=== PATIENT | male | born 1965 | race Hispanic/Latino ===

== ENCOUNTER 2018-07-26 21:24 | Emergency (ER) | payer BC ==
--- NOTE | 2018-07-26 22:15 | EDPHYS ---
Physician Documentation [facility] Name: Pako Wright Age: 52 yrs Sex: Male : 1965 Arrival Date: 07/26/2018 Time: 21:30 Bed 23 Private MD: Sudha Taylor H ED Physician Vitor Machado HPI: 07/26 22:10 This 52 yrs old Male presents to ER via Ambulatory with complaints of Eye yuliya Problem. 22:10 The patient sustained a scratch, to the right eye. Onset: The symptoms/episode yuliya began/occurred just prior to arrival. Duration: the symptoms are continuous. Aggravated by blinking, closing eye, light, opening eye, Alleviated by covering eye, lying down. Associated signs and symptoms: Pertinent positives: None. Pertinent negatives: None. Severity of symptoms: At their worst the symptoms were mild moderate in the emergency department the symptoms are unchanged. The patient has not experienced similar symptoms in the past. Historical: - Allergies: 21:37 No Known Allergies; jd3 - Home Meds: 21:37 None [Active]; jd3 - PMHx: 21:37 None; jd3 - PSHx: 21:37 left knee; jd3 - Immunization history:: Adult Immunizations up to date. - Social history:: Smoking status: Patient/guardian denies using tobacco. - Ebola Screening: : Patient negative for fever greater than or equal to 101.5 degrees Fahrenheit, and additional compatible Ebola Virus Disease symptoms. - Family history:: not pertinent. ROS: 22:10 Constitutional: Negative for fever, chills, and weight loss, ENT: Negative for injury, yuliya pain, and discharge, Neck: Negative for injury, pain, and swelling, Cardiovascular: Negative for chest pain, palpitations, and edema, Respiratory: Negative for shortness of breath, cough, wheezing, and pleuritic chest pain, Abdomen/GI: Negative for abdominal pain, nausea, vomiting, diarrhea, and constipation, Back: Negative for injury and pain, : Negative for injury, bleeding, discharge, and swelling, MS/Extremity: Negative for injury and deformity, Skin: Negative for injury, rash, and discoloration, Neuro: Negative for headache, weakness, numbness, tingling, and seizure, Psych: Negative for depression, anxiety, suicide ideation, homicidal ideation, and hallucinations, Allergy/Immunology: Negative for hives, rash, and allergies, Endocrine: Negative for neck swelling, polydipsia, polyuria, polyphagia, and marked weight changes, Hematologic/Lymphatic: Negative for swollen nodes, abnormal bleeding, and unusual bruising. 22:10 Eyes: Positive for foreign body sensation, pain, photophobia, tearing. Exam: 22:10 Constitutional: This is a well developed, well nourished patient who is awake, alert, yuliya and in no acute distress. Head/Face: Normocephalic, atraumatic. ENT: Nares patent. No nasal discharge, no septal abnormalities noted. Tympanic membranes are normal and external auditory canals are clear. Oropharynx with no redness, swelling, or masses, exudates, or evidence of obstruction, uvula midline. Mucous membranes moist. Neck: Trachea midline, no thyromegaly or masses palpated, and no cervical lymphadenopathy. Supple, full range of motion without nuchal rigidity, or vertebral point tenderness. No Meningismus. Chest/axilla: Normal chest wall appearance and motion. Nontender with no deformity. No lesions are appreciated. Cardiovascular: Regular rate and rhythm with a normal S1 and S2. No gallops, murmurs, or rubs. Normal PMI, no JVD. No pulse deficits. Respiratory: Lungs have equal breath sounds bilaterally, clear to auscultation and percussion. No rales, rhonchi or wheezes noted. No increased work of breathing, no retractions or nasal flaring. Abdomen/GI: Soft, non-tender, with normal bowel sounds. No distension or tympany. No guarding or rebound. No evidence of tenderness throughout. Back: No spinal tenderness. No costovertebral tenderness. Full range of motion. Skin: Warm, dry with normal turgor. Normal color with no rashes, no lesions, and no evidence of cellulitis. MS/ Extremity: Pulses equal, no cyanosis. Neurovascular intact. Full, normal range of motion. Neuro: Awake and alert, GCS 15, oriented to person, place, time, and situation. Cranial nerves II-XII grossly intact. Motor strength 5/5 in all extremities. Sensory grossly intact. Cerebellar exam normal. Normal gait. Psych: Awake, alert, with orientation to person, place and time. Behavior, mood, and affect are within normal limits. 22:10 Eyes: Periorbital structures: appear normal, no acute changes, Pupils: no acute changes, equal, round, and reactive to light and accomodation, Extraocular movements: intact throughout, Conjunctiva: normal, no acute changes, Corneas: abrasion, a fluorescein strip employed to appreciate the findings, Sclera: no appreciated abnormality, no acute changes, Anterior chamber: normal, no acute changes, Lids and lashes: appear normal, no acute changes, no evidence of trauma, Visual lara: are intact, no acute changes, Nystagmus: is not appreciated. Vital Signs: 21:35 BP 118 / 69; Pulse 57; Resp 16 S; Temp 98.0(TE); Pulse Ox 98% on R/A; Weight 79.38 kg jd3 (R); Height 5 ft. 9 in. (175.26 cm) (R); Pain 7/10; 22:40 BP 126 / 65; Pulse 61; Resp 16 S; Temp 98.1(O); Pulse Ox 99% on R/A; ca1 21:35 Body Mass Index 25.84 (79.38 kg, 175.26 cm) jd3 Visual Acuity: 21:51 Left Eye Visual acuity 20/50, Pupil size 3 mm, Normal, React To Light, Reactive To jd3 Accomodation; Right Eye Visual acuity 20/70, Pupil size 3 mm, Normal, React To Light, Reactive To Accomodation; Both Eyes Visual acuity 20/40; Without Lenses; MDM: 22:01 Patient medically screened. [facility] 22:13 Data reviewed: vital signs, nurses notes. [facility] 07/26 22:09 Order name: Eye Tray; Complete Time: 22:19 [facility] 07/26 22:10 Order name: Misc. Order: patch right eye; Complete Time: 22:43 [facility] 07/26 22:10 Order name: Fluoresene Opth strip; Complete Time: 22:18 [facility] Administered Medications: 22:17 Drug: Tetracaine Drops 0.5 % 1 drops Route: Ophthalmic; Site: right eye; ca1 22:17 Drug: Issue 10 mg-325 mg 1 tabs Route: PO; ca1 22:43 Follow up: Response: No adverse reaction; Pain is decreased ca1 22:30 Drug: Tobramycin Ointment (0.3 %) 0.5 inches Route: Ophthalmic; Site: right eye; ca1 Disposition: 07/26/18 22:14 Discharged to Home. Impression: Injury of conjunctiva and corneal abrasion without foreign body, right eye. - Condition is Stable. - Prescriptions for Tobrex 0.3 % Ophthalmic ointment - apply 1 inch ribbon by OPHTHALMIC route 3 times per day; 3.5 gram. Tylenol- Codeine #3 300-30 mg Oral Tablet - take 2 tablet by ORAL route every 6 hours As needed; 30 tablet. - Medication Reconciliation Form, Thank You Letter, Antibiotic Education, Prescription Opioid Use, Work release form form. - Follow up: Sudha Taylor DO; When: 2 - 3 days; Reason: Recheck today's complaints, Continuance of care, Re-evaluation by your physician. Follow up: Paxton Lala MD; When: 2 - 3 days; Reason: Recheck today's complaints, Re-evaluation by your physician. Follow up: Tika Jacobson MD; When: 1 - 2 days; Reason: Recheck today's complaints, Continuance of care, Re-evaluation by your physician. - Problem is new. - Symptoms have improved. Signatures: Vitor Machado MD MD cha Davies, Jonathon, RN RN jd3 Araseli Lubin RN RN ca1 Corrections: (The following items were deleted from the chart) 22:11 22:11 Misc. Order ordered. [facility] 22:32 22:14 07/26/2018 22:14 Discharged to Home. Impression: Injury of conjunctiva and yuliya corneal abrasion without foreign body, right eye. Condition is Stable. Forms are Medication Reconciliation Form, Thank You Letter, Antibiotic Education, Prescription Opioid Use. Follow up: Sudha Taylor; When: 2 - 3 days; Reason: Recheck today's complaints, Continuance of care, Re-evaluation by your physician. Follow up: Paxton Lala; When: 2 - 3 days; Reason: Recheck today's complaints, Re-evaluation by your physician. Problem is new. Symptoms have improved. [facility] 22:47 22:32 07/26/2018 22:14 Discharged to Home. Impression: Injury of conjunctiva and ca1 corneal abrasion without foreign body, right eye. Condition is Stable. Prescriptions for Tobrex 0.3 % Ophthalmic ointment - apply 1 inch ribbon by OPHTHALMIC route 3 times per day; 3.5 gram, Tylenol-Codeine #3 300-30 mg Oral Tablet - take 2 tablet by ORAL route every 6 hours As needed; 30 tablet. and Forms are Medication Reconciliation Form, Thank You Letter, Antibiotic Education, Prescription Opioid Use. Follow up: Sudha Taylor; When: 2 - 3 days; Reason: Recheck today's complaints, Continuance of care, Re-evaluation by your physician. Follow up: Tika Jacobson; When: 1 - 2 days; Reason: Recheck today's complaints, Continuance of care, Re-evaluation by your physician. Problem is new. Symptoms have improved. yuliya
--- NOTE | 2018-07-26 22:15 | ER ---
Nurse's Notes [facility] Name: Pako Wright Age: 52 yrs Sex: Male : 1965 Arrival Date: 07/26/2018 Time: 21:30 Bed 23 Private MD: Sudha Taylor H Diagnosis: Injury of conjunctiva and corneal abrasion without foreign body, right eye Presentation: 07/26 21:34 Presenting complaint: Patient states: "Something hit me in the right eye about 30 min jd3 ago. when I open it I see blurry and it hurts.". Transition of care: patient was not received from another setting of care. Onset of symptoms was July 26, 2018. Risk Assessment: Do you want to hurt yourself or someone else? Patient reports no desire to harm self or others. Initial Sepsis Screen: Does the patient meet any 2 criteria? No. Patient's initial sepsis screen is negative. Does the patient have a suspected source of infection? No. Patient's initial sepsis screen is negative. Care prior to arrival: None. 21:34 Method Of Arrival: Ambulatory jd3 21:34 Acuity: LOURDES 4 jd3 Historical: - Allergies: 21:37 No Known Allergies; jd3 - Home Meds: 21:37 None [Active]; jd3 - PMHx: 21:37 None; jd3 - PSHx: 21:37 left knee; jd3 - Immunization history:: Adult Immunizations up to date. - Social history:: Smoking status: Patient/guardian denies using tobacco. - Ebola Screening: : Patient negative for fever greater than or equal to 101.5 degrees Fahrenheit, and additional compatible Ebola Virus Disease symptoms. - Family history:: not pertinent. Screenin:45 Abuse screen: Denies threats or abuse. Denies injuries from another. Nutritional ca1 screening: No deficits noted. Tuberculosis screening: No symptoms or risk factors identified. Fall Risk None identified. Assessment: 21:45 General: Appears in no apparent distress. comfortable, Behavior is calm, cooperative, ca1 appropriate for age. Pain: Complains of pain in right eye Pain does not radiate. Pain currently is 8 out of 10 on a pain scale. Pain began 1 hour ago. Neuro: Level of Consciousness is awake, alert, obeys commands, Oriented to person, place, time, situation. EENT: Eyes are tearing on outer aspect of conjuctiva of right eye, iris of right eye, inner aspect of conjuctiva of right eye and right inner canthus. Derm: Skin is intact, is healthy with good turgor, Skin is pink, warm \\T\\ dry. Musculoskeletal: Circulation, motion, and sensation intact. Capillary refill < 3 seconds. 22:43 Reassessment: Eye patch applied on R eye. Pt tolerated well. Instructions on eye care ca1 given. Verbalized understanding of instructions. Vital Signs: 21:35 BP 118 / 69; Pulse 57; Resp 16 S; Temp 98.0(TE); Pulse Ox 98% on R/A; Weight 79.38 kg jd3 (R); Height 5 ft. 9 in. (175.26 cm) (R); Pain 7/10; 22:40 BP 126 / 65; Pulse 61; Resp 16 S; Temp 98.1(O); Pulse Ox 99% on R/A; ca1 21:35 Body Mass Index 25.84 (79.38 kg, 175.26 cm) jd3 Visual Acuity: 21:51 Left Eye Visual acuity 20/50, Pupil size 3 mm, Normal, React To Light, Reactive To jd3 Accomodation; Right Eye Visual acuity 20/70, Pupil size 3 mm, Normal, React To Light, Reactive To Accomodation; Both Eyes Visual acuity 20/40; Without Lenses; ED Course: 21:30 Patient arrived in ED. es 21:30 Sudha Taylor DO is Private Physician. es 21:35 Triage completed. jd3 21:37 Arm band placed on. jd3 21:45 Patient has correct armband on for positive identification. Placed in gown. Bed in low ca1 position. Call light in reach. Side rails up X 1. Pulse ox on. NIBP on. Warm blanket given. 22:01 Vitor Machado MD is Attending Physician. yuliya 22:10 Araseli Lubin, JAVIER is Primary Nurse. ca1 22:13 Sudha Taylor DO is Referral Physician. yuliya 22:13 Paxton Lala MD is Referral Physician. yuliya 22:32 Referral Physician role handed off by Paxton Lala MD yuliya 22:32 Tika Jacobson MD is Referral Physician. yuliya 22:46 No provider procedures requiring assistance completed. Patient did not have IV access ca1 during this emergency room visit. Administered Medications: 22:17 Drug: Tetracaine Drops 0.5 % 1 drops Route: Ophthalmic; Site: right eye; ca1 22:17 Drug: Noel 10 mg-325 mg 1 tabs Route: PO; ca1 22:43 Follow up: Response: No adverse reaction; Pain is decreased ca1 22:30 Drug: Tobramycin Ointment (0.3 %) 0.5 inches Route: Ophthalmic; Site: right eye; ca1 Outcome: 22:14 Discharge ordered by . yuliya 22:46 Discharged to home ambulatory, with family. ca1 22:46 Condition: stable 22:46 Discharge instructions given to patient, Instructed on discharge instructions, follow up and referral plans. medication usage, Demonstrated understanding of instructions, follow-up care, medications, Prescriptions given X 2. 22:47 Patient left the ED. ca1 Signatures: Vitor Machado MD MD cha Salyer, Edna es Davies, Jonathon RN RN jd3 Araseli Lubin RN RN ca1
[2018-07-26] MEDS ORDERED: TETRACAINE HCL 0.5% 4ML OPTH ONE (22:22)
[2018-07-26] MEDS ORDERED: FLUORESCEIN SODIUM 1 MG/WRAP ONE (22:29)
[2018-07-26] MEDS ORDERED: HYDROCODONE/APAP 10/325 TAB ONE (22:30)
[2018-07-26] MEDS ORDERED: TOBRAMYCIN SULF 0.3% OPTH OINT ONE (22:30)
== END 2018-07-26 22:47 | disposition home or self-care (01) ==
LOC: ER 21:24
DX: S05.01XA Injury of conjunctiva and corneal abrasion without foreign body, right eye, initial encounter (principal)
CPT/HCPCS: 99283

== ENCOUNTER 2022-04-07 02:59 | Emergency (ER) | payer BC ==
[2022-04-07] MEDS ORDERED: NA CHLORIDE 0.9% 1,000 ML ONE (03:44)
[2022-04-07] MEDS ORDERED: FAMOTIDINE 20 MG/2 ML VIAL IV ONE (03:44)
[2022-04-07] MEDS ORDERED: ONDANSETRON 4 MG/2 ML VIAL ONE (03:44)
[2022-04-07] MEDS ORDERED: MORPHINE 4 MG/ML SYR ONE (03:44)
[2022-04-07 04:08] LABS: Absolute Lymphocytes (CBC) 1.1 K/uL (0.7-4.9); Hematocrit 35.5 % (39.6-49.0); Lymphocytes % 11.7 % (15.3-44.8); MCV 88.2 fL (80-100); MPV 8.8 fL (7.6-11.3); RBC Red Blood Cell Count 4.03 M/uL (4.33-5.43)
[2022-04-07 04:24] LABS: Albumin 3.8 g/dL (3.4-5.0); Bilirubin Total 0.4 mg/dL (0.2-1.0); Potassium 3.8 mmol/L (3.5-5.1); Protein, Total 7.1 g/dL (6.4-8.2)
--- NOTE | 2022-04-07 05:50 | ER ---
Nurse's Notes [facility] Name: Pako Wright Age: 56 yrs Sex: Male : 1965 Arrival Date: 04/07/2022 Time: 03:05 Bed 19 Private MD: Diagnosis: Abdominal pain, unspecified;Nausea with vomiting, unspecified;Diarrhea, unspecified Presentation: 04/07 03:17 Chief complaint: Patient states: "I woke up at one with pain in my stomach, I started vc1 shaking and I threw up once.". Coronavirus screen: Vaccine status: Patient reports being unvaccinated. Client denies travel out of the [place] in the last 14 days. chills, diarrhea, nausea, Client presents with at least one sign or symptom that may indicate coronavirus-19. Ebola Screen: Patient negative for fever greater than or equal to 101.5 degrees Fahrenheit, and additional compatible Ebola Virus Disease symptoms Patient denies exposure to infectious person. Patient denies travel to an Ebola-affected area in the 21 days before illness onset. No symptoms or risks identified at this time. Initial Sepsis Screen: Does the patient meet any 2 criteria? No. Patient's initial sepsis screen is negative. Does the patient have a suspected source of infection? No. Patient's initial sepsis screen is negative. Risk Assessment: Do you want to hurt yourself or someone else? Patient reports no desire to harm self or others. Onset of symptoms was April 07, 2022 at 01:00. 03:17 Method Of Arrival: Ambulatory vc1 03:17 Acuity: LOURDES 3 vc1 Triage Assessment: 03:21 General: Appears in no apparent distress. uncomfortable, slender, Behavior is calm, vc1 cooperative, appropriate for age. Pain: Complains of pain in right upper quadrant Pain radiates to left upper quadrant Pain currently is 8 out of 10 on a pain scale. at worst was 10 out of 10 on a pain scale. Noted to be grimacing, guarding, Also complains of nausea. EENT: No deficits noted. No signs and/or symptoms were reported regarding the EENT system. Neuro: Level of Consciousness is awake, alert, obeys commands, Oriented to person, place, time, situation, Appropriate for age. Cardiovascular: No deficits noted. Respiratory: Airway is patent Respiratory effort is even, unlabored, Respiratory pattern is regular, symmetrical. GI: Abd is soft Abdomen is tender to palpation in right upper quadrant and left upper quadrant Reports upper abdominal pain, diarrhea, nausea, vomiting. : No deficits noted. No signs and/or symptoms were reported regarding the genitourinary system. Derm: No deficits noted. No signs and/or symptoms reported regarding the dermatologic system. Musculoskeletal: No deficits noted. No signs and/or symptoms reported regarding the musculoskeletal system. Historical: - Allergies: 03:20 No Known Allergies; vc1 - Home Meds: 03:20 Flomax 0.4 mg Oral cap 1 cap once daily [Active]; pantoprazole 20 mg oral TbEC 1 tab vc1 once daily [Active]; - PMHx: 03:20 prostate issues; acid reflex; vc1 - PSHx: 03:20 None; vc1 - Immunization history:: Client reports having NOT received the Covid vaccine. - Social history:: Smoking status: Patient denies any tobacco usage or history of. - Family history:: not pertinent. - Hospitalizations: : No recent hospitalization is reported. Screenin:23 [facility] ED Fall Risk Assessment (Adult) History of falling in the last 3 months, vc1 including since admission No falls in past 3 months (0 pts) Confusion or Disorientation No (0 pts) Intoxicated or Sedated No (0 pts) Impaired Gait No (0 pts) Mobility Assist Device Used No (0 pt) Altered Elimination No (0 pt) Score/Fall Risk Level 0 - 2 = Low Risk Oriented to surroundings, Maintained a safe environment, Educated pt \\T\\ family on fall prevention, incl call for assistance when getting out of bed, Assessed \\T\\ reinforced patient's understanding of fall precautions. Abuse screen: Denies threats or abuse. Nutritional screening: No deficits noted. Tuberculosis screening: No symptoms or risk factors identified. Assessment: 03:09 General: Appears uncomfortable, Behavior is calm, cooperative. Pain: Complains of pain ha1 in abdomen Pain does not radiate. Pain currently is 8 out of 10 on a pain scale. Quality of pain is described as crampy, Pain began suddenly. Neuro: Level of Consciousness is awake, alert, obeys commands, Oriented to person, place, time, situation. Cardiovascular: Heart tones S1 S2 present Patient's skin is warm and dry. Respiratory: Airway is patent Respiratory effort is even, unlabored, Respiratory pattern is regular, symmetrical. GI: Abdomen is flat, non-distended, Bowel sounds present X 4 quads. Reports upper abdominal pain. GI: Abd is soft and non tender X 4 quads. : No signs and/or symptoms were reported regarding the genitourinary system. EENT: No signs and/or symptoms were reported regarding the EENT system. Derm: Skin is moist, Skin is normal. Musculoskeletal: Circulation, motion, and sensation intact. Range of motion: intact in all extremities. 04:17 Reassessment: Patient and/or family updated on plan of care and expected duration. Pain ha1 level reassessed. Patient is alert, oriented x 3, equal unlabored respirations, skin warm/dry/pink. pain 3/10 Patient states feeling better. Patient states symptoms have improved. 05:10 Reassessment: Patient and/or family updated on plan of care and expected duration. Pain ha1 level reassessed. Patient is alert, oriented x 3, equal unlabored respirations, skin warm/dry/pink. Patient states feeling better. Patient states symptoms have improved. 06:06 Reassessment: Patient and/or family updated on plan of care and expected duration. Pain ha1 level reassessed. Patient is alert, oriented x 3, equal unlabored respirations, skin warm/dry/pink. 3/10 Patient states feeling better. Patient states symptoms have improved. Vital Signs: 03:09 BP 128 / 70; Pulse 72; Resp 16 S; Pulse Ox 98% on R/A; ha1 03:17 BP 128 / 72; Pulse 65; Resp 18; Temp 98.5; Pulse Ox 99% ; Weight 83.91 kg; Height 5 ft. vc1 9 in. (175.26 cm); Pain 8/10; 03:48 BP 128 / 70; Pulse 70; Resp 18 S; Pulse Ox 98% on R/A; ha1 04:17 BP 119 / 76; Pulse 60; Resp 18 S; Pulse Ox 97% on R/A; ha1 05:10 BP 113 / 72; Pulse 57; Resp 18 S; Pulse Ox 98% ; ha1 06:06 BP 113 / 72; Pulse 60; Resp 17 S; Pulse Ox 98% on R/A; ha1 03:17 Body Mass Index 27.32 (83.91 kg, 175.26 cm) vc1 ED Course: 03:05 Patient arrived in ED. [email or web address] 03:06 Nakul Hsu MD is Attending Physician. rn 03:18 Triage completed. vc1 03:23 Arm band placed on left wrist. vc1 03:24 Patient has correct armband on for positive identification. Bed in low position. Pulse vc1 ox on. NIBP on. 03:25 Gloria Dawn RN is Primary Nurse. ha1 03:30 No provider procedures requiring assistance completed. Inserted saline lock: 20 gauge ha1 antecubital area, using aseptic technique. 04:00 CBC with Diff Sent. ha1 04:00 CMP Sent. ha1 04:00 Lipase Sent. ha1 04:10 Gloria Dawn RN is Primary Nurse. ha1 05:03 CT Abd/Pelvis - IV Contrast Only In Process Unspecified. EDMS 06:10 IV discontinued, intact, bleeding controlled, No redness/swelling at site. Pressure ha1 dressing applied. Administered Medications: 03:50 Drug: NS 0.9% 1000 ml Route: IV; Rate: 1 bolus; Site: right antecubital; ha1 04:50 Follow up: Response: No adverse reaction; IV Status: Completed infusion; IV Intake: ha1 1000ml 03:51 Drug: Zofran (Ondansetron) 4 mg Route: IVP; Site: right antecubital; ha1 04:17 Follow up: Response: No adverse reaction; Nausea is decreased ha1 03:55 Drug: Pepcid (famotidine) 20 mg Route: IVP; Site: right antecubital; ha1 04:17 Follow up: Response: No adverse reaction ha1 03:58 Drug: morphine 4 mg Route: IVP; Infused Over: 4 mins; Site: right antecubital; ha1 04:17 Follow up: Response: No adverse reaction; Pain is decreased; RASS: Alert and Calm (0) ha1 Medication: 03:24 VIS not applicable for this client. vc1 Intake: 04:50 IV: 1000ml; Total: 1000ml. ha1 Outcome: 05:50 Discharge ordered by . rn 06:09 Discharged to home ambulatory, with family. ha1 06:09 Condition: stable 06:09 Discharge instructions given to patient, family, Instructed on discharge instructions, follow up and referral plans. medication usage, Demonstrated understanding of instructions, follow-up care, medications, Prescriptions given X 3. 06:10 Patient left the ED. ha1 Signatures: Dispatcher [employer] EDMS Nakul Hsu MD MD rn Jeffries, Jennifer [email or web address] Beulah Dang RN RN vc1 Gloria Dawn RN RN ha1 Corrections: (The following items were deleted from the chart) 05:13 04:55 Response: No adverse reaction ha1 ha1 05:14 04:56 Response: No adverse reaction ha1 ha1 05:18 04:20 BP 119 / 76; Pulse 60bpm; Resp 18bpm; Spontaneous; Pulse Ox 97% RA; ha1 ha1
--- NOTE | 2022-04-07 05:50 | EDPHYS ---
Physician Documentation [facility] Name: Pako Wright Age: 56 yrs Sex: Male : 1965 Arrival Date: 04/07/2022 Time: 03:05 Bed 19 Private MD: ED Physician Nakul Hsu HPI: 04/07 03:48 This 56 yrs old Male presents to ER via Ambulatory with complaints of rn Abdominal Pain. 03:48 The patient presents with abdominal pain in the upper abdomen. Onset: The rn symptoms/episode began/occurred this morning. The symptoms do not radiate. Associated signs and symptoms: Pertinent positives: nausea and vomiting, diarrhea, Pertinent negatives: blood in stools, fever. The symptoms are described as achy, burning. Modifying factors: The symptoms are alleviated by nothing, the symptoms are aggravated by touching the area. Severity of pain: At its worst the pain was moderate in the emergency department the pain is unchanged. The patient has not experienced similar symptoms in the past. The patient has not recently seen a physician. Historical: - Allergies: 03:20 No Known Allergies; vc1 - Home Meds: 03:20 Flomax 0.4 mg Oral cap 1 cap once daily [Active]; pantoprazole 20 mg oral TbEC 1 tab vc1 once daily [Active]; - PMHx: 03:20 prostate issues; acid reflex; vc1 - PSHx: 03:20 None; vc1 - Immunization history:: Client reports having NOT received the Covid vaccine. - Social history:: Smoking status: Patient denies any tobacco usage or history of. - Family history:: not pertinent. - Hospitalizations: : No recent hospitalization is reported. ROS: 03:48 Constitutional: Negative for fever, chills, and weight loss, Eyes: Negative for injury, rn pain, redness, and discharge, Neck: Negative for injury, pain, and swelling, Cardiovascular: Negative for chest pain, palpitations, and edema, Respiratory: Negative for shortness of breath, cough, wheezing, and pleuritic chest pain, Abdomen/GI: + upper abd pain Back: Negative for injury and pain, MS/Extremity: Negative for injury and deformity, Skin: Negative for injury, rash, and discoloration, Neuro: Negative for headache, weakness, numbness, tingling, and seizure. Exam: 03:48 Constitutional: This is a well developed, well nourished patient who is awake, alert, rn and in no acute distress. Head/Face: Normocephalic, atraumatic. Cardiovascular: Regular rate and rhythm. No pulse deficits. Respiratory: No increased work of breathing, no retractions or nasal flaring. Abdomen/GI: soft, + epigastric and LUQ tenderness, no rebound, neg merlos Skin: Warm, dry MS/ Extremity: Pulses equal, no cyanosis. Neuro: Awake and alert, GCS 15 Vital Signs: 03:09 BP 128 / 70; Pulse 72; Resp 16 S; Pulse Ox 98% on R/A; ha1 03:17 BP 128 / 72; Pulse 65; Resp 18; Temp 98.5; Pulse Ox 99% ; Weight 83.91 kg; Height 5 ft. vc1 9 in. (175.26 cm); Pain 8/10; 03:48 BP 128 / 70; Pulse 70; Resp 18 S; Pulse Ox 98% on R/A; ha1 04:17 BP 119 / 76; Pulse 60; Resp 18 S; Pulse Ox 97% on R/A; ha1 05:10 BP 113 / 72; Pulse 57; Resp 18 S; Pulse Ox 98% ; ha1 06:06 BP 113 / 72; Pulse 60; Resp 17 S; Pulse Ox 98% on R/A; ha1 03:17 Body Mass Index 27.32 (83.91 kg, 175.26 cm) vc1 MDM: 03:06 Patient medically screened. rn 05:48 Differential diagnosis: appendicitis, bowel obstruction, cholecystitis, Cholelithiasis, rn diverticulitis, gastritis, gastroesophageal reflux disease, non-specific abd pain, pancreatitis, Peptic Ulcer Disease. Data reviewed: vital signs, nurses notes, lab test result(s), radiologic studies, CT scan, and as a result, I will discharge patient. 05:49 Counseling: I had a detailed discussion with the patient and/or guardian regarding: the rn historical points, exam findings, and any diagnostic results supporting the discharge/admit diagnosis, lab results, radiology results, the need for outpatient follow up, to return to the emergency department if symptoms worsen or persist or if there are any questions or concerns that arise at home. Response to treatment: the patient's symptoms have markedly improved after treatment, and as a result, I will discharge patient. Special discussion: Based on the patient's Hx, exam, and Dx evaluation, there is no indication for emergent surgery or inpatient Tx. It is understood by the patient/guardian that if the Sx's persist or worsen they need to return immediately for re-evaluation. I discussed with the patient/guardian in detail that at this point there is no indication for admission to the hospital. It is understood, however, that if the symptoms persist or worsen the patient needs to return immediately for re-evaluation. 04/07 03:26 Order name: CBC with Diff; Complete Time: 04:40 rn 04/07 03:26 Order name: CMP; Complete Time: :40 rn 04/07 03: Order name: Lipase; Complete Time: :40 rn 04/07 03: Order name: CT Abd/Pelvis - IV Contrast Only rn 04/07 03:26 Order name: IV Saline Lock; Complete Time: 04:00 rn 04/07 03:26 Order name: Labs collected and sent; Complete Time: 04:00 rn Administered Medications: 03:50 Drug: NS 0.9% 1000 ml Route: IV; Rate: 1 bolus; Site: right antecubital; ha1 04:50 Follow up: Response: No adverse reaction; IV Status: Completed infusion; IV Intake: ha1 1000ml 03:51 Drug: Zofran (Ondansetron) 4 mg Route: IVP; Site: right antecubital; ha1 04:17 Follow up: Response: No adverse reaction; Nausea is decreased ha1 03:55 Drug: Pepcid (famotidine) 20 mg Route: IVP; Site: right antecubital; ha1 04:17 Follow up: Response: No adverse reaction ha1 03:58 Drug: morphine 4 mg Route: IVP; Infused Over: 4 mins; Site: right antecubital; ha1 04:17 Follow up: Response: No adverse reaction; Pain is decreased; RASS: Alert and Calm (0) ha1 Disposition Summary: 04/07/22 05:50 Discharge Ordered Location: Home rn Problem: new rn Symptoms: have improved rn Condition: Stable rn Diagnosis - Abdominal pain, unspecified rn - Nausea with vomiting, unspecified rn - Diarrhea, unspecified rn Followup: rn - With: Private Physician - When: As needed - Reason: Recheck today's complaints, Re-evaluation by your physician Discharge Instructions: - Discharge Summary Sheet rn - Abdominal Pain, Adult rn - Diarrhea, Adult rn - Nausea and Vomiting, Adult rn - Pain Without a Known Cause rn Forms: - Medication Reconciliation Form rn - Thank You Letter rn - Antibiotic visual journalist - Prescription Opioid Use rn Prescriptions: - Tramadol 50 mg Oral Tablet - take 1 tablet by ORAL route every 8 hours as needed; 12 tablet; Refills: 0, rn Product Selection Permitted - Bactrim DS 800-160 mg Oral Tablet - take 1 tablet by ORAL route every 12 hours for 10 days; 20 tablet; Refills: 0, rn Product Selection Permitted - ondansetron 4 mg Oral - take 4 milligrams by SUBLINGUAL route every 8 hours; 15 tablet; Refills: 0, rn Product Selection Permitted Signatures: Dispatcher [employer] Nakul Swift MD MD rn Calcote, Vanessa RN RN vc1 Gloria Dawn, RN RN ha1
[2022-04-07 06:20] VITALS: TEMP 98.5
[2022-04-07 06:23] VITALS: BP 113/72; O2SAT 98
--- NOTE | 2022-04-07 22:14 | RAD REPORT ---
EXAM DESCRIPTION: CT - Abdomen Pelvis W Contrast - 04/07/2022 6:54 am CLINICAL HISTORY: Upper abdominal pain, vomiting TECHNIQUE: Axial computed tomography images of the abdomen and pelvis with intravenous contrast. S agittal and coronal reformatted images were created and reviewed. This CT exam was performed using one or more of the following dose reduction techniques: automated exposure control, adjustment of t he mA and/or kV according to patient size, and/or use of iterative reconstruction technique. COMPARISON: No relevant prior studies available. FINDINGS: Lung bases: Mild emphysematous changes at the right lung base. ABDOMEN: Liver: Scattered small hepatic cysts and additional subcentimeter hypodensities which are too small to characterize. No follow-up imaging is necessary. Gallbladder and bile ducts: Unremarkable. No calcified stones. No ductal dilation. Pancreas: Unremarkable. No mass. No ductal dilation. Spleen: Unremarkable. No splenomegaly. Adrenals: Unremarkable. No mass. Kidneys and ureters: Unremarkable. Normal renal cortical enhancement bilaterally. No calculi. No hydronephrosis. Stomach and bowel: Colonic diverticula without adjacent inflammatory change. No obstruction. No appreciable mucosal thickening. PELVIS: Appendix: Normal caliber appendix. No findings to suggest acute appendicitis. Bladder: The urinary bladder is partially decompressed. Mild circumferential urinary bladder wall thickening. Reproductive: The prostate is enlarged. ABDOMEN and PELVIS: Intraperitoneal space: Unremarkable. No free air. No significant fluid collection. Bones/joints: Multilevel spondylosis. No acute fracture. No dislocation. Soft tissues: Unremarkable. Vasculature: Unremarkable. No abdominal aortic aneurysm. Lymph nodes: Unremarkable. No enlarged lymph nodes. IMPRESSION: 1. No bowel obstruction or appreciable mucosal thickening. 2. Mild circumferential urinary bladder wall thickening which may be related to degree of distentio n in combination with bladder outlet obstruction. Please correlate clinically for cystitis. 3. Other findings as above. Electronically signed by: Dayday Joshi MD 04/07/2022 5:25 AM SOFTWARE ARCHITECT Due to temporary technical issues with the PACS/Fluency reporting system, reports are being signed by the in house radiologists without review as a courtesy to insure prompt reporting. The interpreting radiologist is fully responsible for the content of the report.
== END 2022-04-07 06:10 | disposition home or self-care (01) ==
LOC: ER 02:59
DX: R10.10 Upper abdominal pain, unspecified (principal); R11.2 Nausea with vomiting, unspecified; R19.7 Diarrhea, unspecified
CPT/HCPCS: 96361; 85025; 36415; 83690; 80053; 74177; 96375; 96374; 99284; Q9967; J7030; J2405